=== PATIENT | female | born 1955 | race Caucasian/White ===

== ENCOUNTER → 2024-09-28 | Outpatient (CLI) | payer MEDICARE, SELFPAY ==
--- NOTE | 2024-09-28 | XR_ITS ---
Examination: Bilateral hips, AP pelvis, 5 views Technique: AP, lateral views both hips, AP pelvis, 5 views Exam date and time: September 28, 2024 1357 hours INDICATIONS: Bilateral hip pain today including popping sensation right hip FINDINGS: No hip fractures or hip dislocations Minimal bilateral hip osteoarthritis Bones of the pelvis intact IMPRESSION: Minimal bilateral hip osteoarthritis
== END | disposition home or self-care (01) ==
LOC: CDIM 12:00
PROVIDERS: PCP Family Medicine; Referring Provider Family Medicine; Visit Provider Family Medicine
DX: M16.0 Bilateral primary osteoarthritis of hip (principal)
CPT/HCPCS: 73523